=== PATIENT | female | born 1970 | race Caucasian/White ===

== ENCOUNTER → 2021-04-05 | Outpatient (CLI) | payer BC | LOC: MC.RAD 08:26 | DX: Z12.31 Encounter for screening mammogram for malignant neoplasm of breast (principal) ==

== ENCOUNTER 2023-01-16 15:45 | Outpatient (RCR) | payer BC ==
[~2023-01-16 15:45] MED LIST: CARDIZEM CD360 MG PO; DESYREL 50MG50 MG PO; EFFEXOR 75M75 MG/TAB PO; EFFEXOR-XR150 MG PO; NORCO 325 MG-51 TAB PO; PRINIVIL5 MG PO; SYNTHROID0.175 MG PO
== END 2023-01-19 | disposition home or self-care (01) ==
LOC: WSPT
DX: M25.561 Pain in right knee (principal); Z96.651 Presence of right artificial knee joint

== ENCOUNTER 2023-02-16 15:00 | Outpatient (RCR) | payer BC | END 2023-02-19 | disposition home or self-care (01) | LOC: WSPT | DX: M25.561 Pain in right knee (principal); Z96.651 Presence of right artificial knee joint ==